=== PATIENT | male | born 2000 | race Caucasian/White ===

== ENCOUNTER 2019-06-28 14:56 | Emergency (ER) | payer SELFPAY ==
[~2019-06-28] VITALS: Ht 180.3 cm; Wt 70.3 kg
[2019-06-28 14:57] VITALS: BP_SYST 119
--- NOTE | 2019-06-28 14:57 | NUR ---
Patient to ER bed H1 to gown for evaluation. Side rails up.
--- NOTE | 2019-06-28 14:58 | NUR ---
Patient brought in by police officers in the ED for medical clearance d/t shortness of breath while in long term. Denied any chest pain or shortness of breath. Denied any fevers, chills, nausea or vomiting. Patient is alert and oriented x3, respirations even and unlabored, speaking in full sentences and ambulating with a steady gait. VSS, pain level 0/10. Informed of approximate wait time. Instructed to notify ED staff for any changes in condition or worsening of symptoms while waiting to be seen by a provider. Patient verbalized understanding.
--- NOTE | 2019-06-28 15:00 | NUR ---
ER Dr. Olson at bedside examining patient.
[2019-06-28 15:26] VITALS: BP_SYST 119
--- NOTE | 2019-06-28 15:27 | NUR ---
Patient given written and verbal discharge instructions and verbalizes understanding. ER MD discussed with patient the results and treatment provided. Patient in stable condition. ID arm band removed. Rx of Albuterol given. Patient educated on pain management and to follow up with PMD. Pain Scale 0/10. Opportunity for questions provided and answered. Medication side effect fact sheet provided.
== END 2019-06-28 15:27 ==
LOC: SED 14:56
DX: R06.02 Shortness of breath (principal); J45.901 Unspecified asthma with (acute) exacerbation
CPT/HCPCS: 99283